=== PATIENT | male | born 1950 | race Caucasian/White ===

== ENCOUNTER → 2017-02-07 | Outpatient (CLI) | payer BC ==
--- NOTE | 2017-02-07 11:14 | DIAGNOSTIC IMAGING REPORT ---
FLUOROSCOPICALLY GUIDED LEFT HIP INTRA-ARTICULAR STEROID INJECTION CLINICAL HISTORY: Left hip degenerative joint disease. COMPARISON STUDY: None. FLUOROSCOPY TIME: 10 seconds. FINDINGS: The procedure, risks and benefits were discussed with the patient. The patient agreed to the procedure and informed written consent was obtained. The procedure was performed by Dr. Oliver following a timeout. Skin overlying the left hip joint was prepped and draped in sterile fashion and local anesthesia was achieved with 1% lidocaine. Under intermittent fluoroscopic guidance, a 3 1/2 inch 22-gauge spinal needle was directed into the left hip joint. Positioning within the joint space was confirmed with injection of 1 cc of Optiray 300. At this time, a mixture of 2 cc of Celestone and 8 cc of 0.5% Marcaine was injected into the left hip joint. The needle was removed. The patient tolerated the procedure well and no immediate complications were evident. One fluoroscopic image was obtained. IMPRESSION: Fluoroscopically guided left hip intra-articular steroid injection. Electronically signed by: Moise Oliver M.D. 02/07/2017 11:13 AM Dictated Date/Time: 02/07/2017 11:11 AM
== END | disposition home or self-care (01) ==
LOC: C.RADBC 09:48
PROVIDERS: ATTEND Orthopaedic Surgery
DX: M16.12 Unilateral primary osteoarthritis, left hip (principal)